=== PATIENT | female | born 1935 | race Caucasian/White ===

== ENCOUNTER 2016-12-06 10:17 | Inpatient (IN) | payer MEDICARE, BC ==
[~2016-12-06] VITALS: Ht 167.6 cm; Wt 70.6 kg
[2016-12-06] MEDS ORDERED: PRAM0.12 PO ×2 (11:37)
[2016-12-06] MEDS ORDERED: LEVO75TA3 PO ×2 (11:37)
[2016-12-06] MEDS ORDERED: VESI10TA PO ×2 (11:37)
[2016-12-06] MEDS ORDERED: CARB25TA9 PO ×2 (11:37)
[2016-12-06] MEDS ORDERED: CITA20TA4 PO ×2 (11:37)
[2016-12-08] MEDS ORDERED: INSULIN HUMAN REGULAR 1,000 UNITS/10 ML VIAL SQ PRN (08:45)
[2016-12-08] MEDS ORDERED: SODIUM CHLORID 0.9% 500 ML IV PRN (08:45)
[2016-12-08] MEDS ORDERED: POVIDONE IODINE 5% (ANTISEPSIS KIT) 4 APPLICATIONS EACH NARE PRN (08:45)
[2016-12-08] MEDS ORDERED: METOPROLOL TARTRATE 25 MG TAB PO PRN (08:45)
[2016-12-08] MEDS ORDERED: LACTATED RINGER'S 1000 ML IV PRN (08:45)
[2016-12-08] MEDS ORDERED: CHLORHEXIDINE GLUCONATE 2 % 1 PACK (2 CLOTHS) TOPICAL PRN (08:45)
[2016-12-08] MEDS ORDERED: TRANEXAMIC ACID IV SCH ×2 (09:00→15:15)
[2016-12-08] MEDS ORDERED: DEXAMETHASONE SOD PHOS 20 MG/5 ML VIAL IV SCH (09:00)
[2016-12-08] MEDS ORDERED: ceFAZolin 2 GM PREMIX 50 ML IV SCH (09:00)
[2016-12-08] MEDS ORDERED: EXPAREL PERI-ARTICULAR INJECTION (TOTAL VOL. 60 ML) P-ARTICULR SCH ×2 (09:00)
[2016-12-08] MEDS ORDERED: POVIDONE IODINE 7.5% SCRUB 118 ML BOTTLE TOPICAL SCH (09:00)
[2016-12-08] MEDS ORDERED: SODIUM CHLORIDE 0.9% IV SCH ×2 (09:00→15:15)
[2016-12-08] MEDS ORDERED: VANCOMYCIN 1000 MG/NS 250 ML (for <70 kg) IV SCH ×2 (09:00)
[2016-12-08] MEDS ORDERED: ACET-703 PO ×2 (09:30)
[2016-12-08 09:31] VITALS: BP 140/66; PULSE 67; RESP 18; TEMP 97.9; O2SAT 100
[2016-12-08] MEDS ORDERED: MIDAZOLAM HCL 2 MG/2 ML VIAL ONE (11:16)
[2016-12-08] MEDS ORDERED: GENTAMICIN SULFATE 80 MG/2 ML VIAL ONE (11:25)
[2016-12-08] MEDS ORDERED: PROPOFOL 200 MG/20 ML AMP IV ONE (11:40)
[2016-12-08] MEDS ORDERED: NEOSTIGMINE 3 MG/3 ML SYR IV ONE (11:40)
[2016-12-08] MEDS ORDERED: ONDANSETRON HCL 4 MG/2 ML VIAL IV PUSH ONE (11:41)
[2016-12-08] MEDS ORDERED: LACTATED RINGER'S 1000 ML INJ 1,000 ML IV ONE (11:41)
[2016-12-08] MEDS ORDERED: PHENYLEPH/NS 1000 MCG/10 ML SYR IV ONE (11:41)
[2016-12-08 14:29] LABS: HEMATOCRIT 35.3 % (35.0-46.0); REVIEW FLAG FINAL
[2016-12-08] MEDS ORDERED: NORC5TAB PO (14:41)
[2016-12-08] MEDS ORDERED: ENOX40P SQ (14:41)
[2016-12-08] MEDS ORDERED: ASPI325T PO (14:41)
[2016-12-08] MEDS ORDERED: BISACODYL 10 MG SUPP RECTAL PRN (14:45)
[2016-12-08] MEDS ORDERED: ZOLPIDEM TARTRATE 5 MG TAB PO PRN (14:45)
[2016-12-08] MEDS ORDERED: NALOXONE HCL 0.4 MG/ML AMP IV PRN (14:45)
[2016-12-08] MEDS ORDERED: MORPHINE SULFATE 4 MG/ML INJ IV PUSH PRN (14:45)
[2016-12-08] MEDS ORDERED: SODIUM CHLORIDE 0.9% FLUSH 5 ML FLUSH IVF PRN (14:45)
[2016-12-08] MEDS ORDERED: diphenhydrAMINE HCL 50 MG/ML VIAL IV PRN (14:45)
[2016-12-08] MEDS ORDERED: Post-op Orders (for Pharmacy) MISC XX ONE (14:45)
[2016-12-08] MEDS ORDERED: ALUMINUM/MAGNESIUM/SIMETH 30 ML CUP PO PRN (14:45)
[2016-12-08] MEDS ORDERED: ACETAMINOPHEN/HYDROcodone 325 MG/5 MG TAB PO PRN (14:45)
[2016-12-08] MEDS ORDERED: ONDANSETRON HCL 4 MG/2 ML VIAL IVP PRN (14:45)
--- NOTE | 2016-12-08 15:09 | HHI.DCPOC ---
Discharge Care Plan Diagnosis: (1) Mechanical complic of internal orthopedic device, implant or graft (2) Status post revision of total hip replacement Your Health Problems Are: Difficulty with ADL Goals to Promote Your Health * To prevent worsening of your condition and complications * To maintain your health at the optimal level Directions to Meet Your Goals Take your medications as prescribed Follow your dietary instruction Follow activity as directed Keep your appointments as scheduled Take your immunizations and boosters as scheduled If your symptoms worsen call your PCP, if no PCP go to Urgent Care Center or Emergency Room Smoking is Dangerous to Your Health. Avoid second hand smoke Call the 24-hour hour crisis hotline for domestic abuse at Maksim Dumas December 08, 2016 15:09
--- NOTE | 2016-12-08 15:10 | HHI.FF ---
Face to Face Verification Diagnosis: (1) Mechanical complic of internal orthopedic device, implant or graft (2) Status post revision of total hip replacement Physical Therapy Gait training, Transfer training, bed to chair Hip: Total hip Left LE Weight Bearing: WB as tolerated Left LE Range of Motion: Active ROM Nursing Nursing: Nimesh teaching, Dressing changes Dressing Changes: Daily dressing change I have seen patient Zohaib Galeano on 12/08/16. My clinical findings support the need for the requested home health care services because: Limited ability to care for self High risk of falls I certify that my clinical findings support that this patient is homebound because: Post-op weakness Unsteady gait/balance Maksim Dumas December 08, 2016 15:10
[2016-12-08] MEDS ORDERED: WALKER WHEELS/F1 MIS (15:11)
[2016-12-08] MEDS ORDERED: COMMODE 3-IN-11 MIS (15:11)
[2016-12-08] MEDS ORDERED: DO NOT ADM ANY ANTICOAGULANT DRUGS PRN (15:15)
[2016-12-08] MEDS ORDERED: fentaNYL CITRATE 250 MCG/5 ML AMP ONE (15:16)
[2016-12-08] MEDS: SODIUM CHLOR 0.9% 1000 ML INJ 1,000 ML IV SCH (15:30)
[2016-12-08 16:00] VITALS: BP 138/62; PULSE 76; RESP 16; TEMP 97.4; O2SAT 100
--- NOTE | 2016-12-08 16:12 | RADRPT ---
EXAM DATE/TIME: 12/08/2016 15:13 [facility] COMPARISON: No previous studies available for comparison. INDICATIONS : Post op left hip. MEDICAL HISTORY : None. SURGICAL HISTORY : None. ENCOUNTER: Initial ACUITY: 1 day PAIN SCORE: Non-responsive. LOCATION: Left hip FINDINGS: The patient is status post a total hip arthroplasty with a bipolar prosthesis. Prosthesis is well-sea nessa. Alignment is anatomic. A fracture is not appreciated. CONCLUSION: Anatomic alignment. Timoteo Hoover MD FACR Board Certified Radiologist. This report was verified electronically.
[2016-12-08] MEDS ORDERED: PILL SPLITTER OTHER PRN (18:00)
[2016-12-08] MEDS ORDERED: PRAMIPEXOLE DIHYDROCHLORIDE 0.25 MG TAB PO SCH (18:00)
[2016-12-08] MEDS: ACETAMINOPHEN/HYDROcodone 325 MG/5 MG TAB PO PRN (19:27)
[2016-12-08] MEDS: SODIUM CHLORIDE 0.9% FLUSH 5 ML FLUSH IVF SCH (19:44)
[2016-12-08 20:00] VITALS: BP 112/53; PULSE 106; RESP 18; TEMP 97.9; O2SAT 100
[2016-12-08] MEDS: TOLTERODINE TARTRATE 4 MG CAP LA PO SCH (20:52)
[2016-12-08] MEDS: CARBIDOPA/LEVODOPA 25 MG/100 MG TAB PO SCH (20:52)
[2016-12-08] MEDS: CITALOPRAM HYDROBROMIDE 20 MG TAB PO SCH (20:52)
[2016-12-09] VITALS (8 sets, daily range): BP systolic 91–118; BP diastolic 41–51; PULSE 80–89; RESP 17–19; TEMP 97–99.8; O2SAT 94–100
[2016-12-09] MEDS: SODIUM CHLOR 0.9% 1000 ML INJ 1,000 ML IV SCH ×4 (01:00→21:00)
[2016-12-09 05:05] LABS: HEMATOCRIT 26.7 % (35.0-46.0); MEAN CELL VOLUME 87.2 FL (80.0-100.0); MEAN CORPUSCULAR HGB CONC 35.6 % (32.0-36.0); PLATELET COUNT 122 TH/MM3 (150-450); RED BLOOD COUNT 3.07 MIL/MM3 (4.00-5.30); RED CELL DISTRIBUTION WIDTH 13.3 % (11.6-17.2); REVIEW FLAG FINAL; WHITE BLOOD COUNT 6.5 TH/MM3 (4.0-11.0)
[2016-12-09 05:26] LABS: BICARBONATE 27.2 MEQ/L (21.0-32.0); POTASSIUM 3.6 MEQ/L (3.5-5.1)
[2016-12-09] MEDS: LEVOTHYROXINE SODIUM 75 MCG TAB PO SCH (06:17)
[2016-12-09] MEDS: PRAMIPEXOLE DIHYDROCHLORIDE 0.25 MG TAB PO SCH ×4 (07:24→22:21)
[2016-12-09] MEDS: CARBIDOPA/LEVODOPA 25 MG/100 MG TAB PO SCH ×3 (07:24→22:17)
[2016-12-09] MEDS: PANTOPRAZOLE SOD 20 MG DELAYED RELEASE TAB PO SCH (07:24)
[2016-12-09] MEDS: ACETAMINOPHEN/HYDROcodone 325 MG/5 MG TAB PO PRN ×3 (07:25→18:30)
[2016-12-09] MEDS: SODIUM CHLORIDE 0.9% FLUSH 5 ML FLUSH IVF SCH ×2 (07:29→21:00)
--- NOTE | 2016-12-09 08:19 | MB ---
cc: DAYDAY SHEPARD DATE OF CONSULTATION: 12/08/2016 DATE OF : 1935 REASON FOR CONSULTATION Assist in medical management. HISTORY OF PRESENT ILLNESS The patient is a very pleasant 81-year-old female with significant past medical history of arthritis, who had a left hip problem before. Today she had total hip arthroplasty with left hip revision. The patient had significant past medical history of hypothyroidism, Parkinson's. The patient fell down a few days ago. But she did not break any bones, as per the patient. She hit her head. But no problem at present. The patient was seen postop in her room. She was still sleepy. She was waking up with a voice, answers appropriately but slow in response. She was alert and seems like oriented x3. She has no headache, no dizziness, no chest pain, no diaphoresis or palpitations. She denies any abdominal pain or chest pain. She has no nausea or vomiting but genitourinary symptoms. PAST MEDICAL HISTORY 1. Hypothyroidism. 2. Parkinson's. MEDICATIONS Reviewed, please see EMR. ALLERGIES The patient has NO KNOWN DRUG ALLERGIES. REVIEW OF SYSTEMS As described above, otherwise negative for 10-systems. SOCIAL HISTORY The patient does not smoke, drink or do any drugs. FAMILY HISTORY Noncontributory. PHYSICAL EXAMINATION GENERAL: The patient is sleepy, arousable and then goes back to sleep. VITAL SIGNS: The patient is afebrile, pulse was 77, respiratory rate 16, blood pressure 145/67, pulse ox of 99% on 2 liters. HEENT: Head is atraumatic with bluish hue on the eyes and left forehead. Nontender. No swelling noted. Eyes negative conjunctival icterus. Mouth unremarkable. NECK: Supple. No increased JVD. Central trachea. RESPIRATORY SYSTEMS: Chest clear to auscultation. CVS:. S1 and S2 audible. I am unable to hear any S3, gallop. GI: Abdomen soft, nontender, no organomegaly. Positive bowel sounds. MUSCULOSKELETAL: Extremities no cyanosis or pedal edema appreciated. The patient was moving her toes. SKIN: Warm and dry. RESEARCH LEADER: Normal facial features, moving all her extremities. INVESTIGATION Hemoglobin 11._ hematocrit 35.5. Hip x-ray was done which showed anatomic alignment. ASSESSMENT 1. Revision of left total hip arthroplasty. 2. Hypothyroidism. 3. Parkinson's. RECOMMENDATIONS 1. BMP, CBC in the morning. 2. Continue home medication as indicated and started. 3. CBC, BMP in the morning. 4. Postop antibiotic, pain management, physical therapy, anticoagulation for DVT prophylaxis as per Ortho. 5. We will start PPI for GI prophylaxis. Discussed and explained with the patient. Thank you Dr. Vizcaino for the consult, will follow with you. Dayday Shepard MD JP/ARINAA /10:49 PM /7:58 AM
--- NOTE | 2016-12-09 10:39 | HHI.PR ---
Subjective Subjective Remarks ambulating with walker and PT assist doing well pain is stable, a "5" no n/v no cp no sob no fever Review of Systems Constitutional Constitutional Remarks 12 point ros completed, neg. except as noted above Vitals/Results Intake & Output 12/08/16 12/08/16 12/09/16 15:00 23:00 07:00 Intake Total 1580 ml 240 ml Output Total 2450 ml 850 ml Balance -870 ml -610 ml Intake Oral 480 ml 240 ml Other 1100 ml Output Urine Total 1850 ml 850 ml Estimated Blood Loss 600 ml # Bowel Movements 0 0 Vital Signs Vital Signs Date Time Temp Pulse Resp B/P Pulse Ox O2 Delivery O2 Flow Rate FiO2 12/09/16 10:19 96 Nasal Cannula 3.00 12/09/16 08:25 18 12/09/16 08:00 99.1 84 19 106/51 94 12/09/16 06:22 96 12/09/16 04:00 99.8 82 18 91/41 98 12/09/16 00:00 98.6 86 18 97/41 100 12/08/16 20:00 97.9 106 18 112/53 100 12/08/16 16:00 97.7 69 12 145/67 99 Nasal Cannula 2 12/08/16 16:00 97.4 76 16 138/62 100 12/08/16 15:45 68 12 147/67 99 Nasal Cannula 2 12/08/16 15:30 77 12 170/70 100 Nasal Cannula 2 12/08/16 15:15 82 12 143/65 98 Nasal Cannula 2 12/08/16 15:06 97.7 91 12 147/79 100 Nasal Cannula 2 12/08/16 11:20 99 CBC/BMP: 12/09/16 0426 12/09/16 0426 Lab Results Laboratory Tests Test 12/08/16 12/09/16 14:10 04:26 Hemoglobin 11.8 GM/DL 9.5 GM/DL Hematocrit 35.3 % 26.7 % Blood Type A POSITIVE Crossmatch Leukocyte-Reduced Red Blood Cells Blood Bank Comment White Blood Count 6.5 TH/MM3 Red Blood Count 3.07 MIL/MM3 Mean Corpuscular Volume 87.2 FL Mean Corpuscular Hemoglobin 31.0 PG Mean Corpuscular Hemoglobin 35.6 % Concent Red Cell Distribution Width 13.3 % Platelet Count 122 TH/MM3 Mean Platelet Volume 9.0 FL Sodium Level 145 MEQ/L Potassium Level 3.6 MEQ/L Chloride Level 111 MEQ/L Carbon Dioxide Level 27.2 MEQ/L Anion Gap 7 MEQ/L Blood Urea Nitrogen 16 MG/DL Creatinine 0.63 MG/DL Estimat Glomerular Filtration 91 ML/MIN Rate Random Glucose 102 MG/DL Calcium Level 8.0 MG/DL Physical Exam General General Appearance: Well Developed, Well Nourished, No Acute Distress, Comfortable Eyes Eye Exam: Pupils Equal, Pupils Reactive Eye Remarks left periorbital bruising Ears & Nose Ears & Nose Exam: Nasal Mucosa [place] Throat Throat Exam: Oral Mucosa [place] & Moist Neck Neck Exam: Neck Supple, Trachea Midline Pulmonary Resp Exam: Clear Bilaterally, No Distress Cardiology CV Exam: Regular, Good Perfusion Gastrointestinal/Abdomen GI Exam: Soft, Non-Tender, Bowel Sounds Present, Non-Distended Musculoskeletal MS Exam: Joints Intact MS Remarks Left hip dressing D/I Integumentary Skin Exam: Warm, Dry Extremeties Extremities Exam: No Edema, Pedal Pulses Palpable Neurologic Neuro Exam: Alert, Awake, Oriented, Speech Clear, [place] Hand Equal Psychiatric Psych Exam: Appropriate Responses VTE Prophylaxis VTE Prophylaxis Device: TEDs VTE Prophylaxis Meds: Lovenox Assessment/Plan Problem List: (1) Status post revision of total hip replacement (2) Parkinson disease (3) Hx of fall (4) Depression (5) Hypothyroid Assessment/Plan continue with post op ortho care pain management PT eval and tx Wound care Lovenox for DVT prophylaxis continue with home medications Labs reviewed, stable HH stable Poss. dc tomorrow bowel regimen D/W RN D/W Dr. Shepard D/W pt This pt. was seen by myself and Dr. Shepard, this note is written on his behalf. Problem Qualifiers (1) Depression: Qualified Code: F32.9 - Depression, unspecified depression type (2) Hypothyroid: Qualified Code: E03.9 - Hypothyroidism, unspecified type Nataliya Reeves December 09, 2016 10:39
--- NOTE | 2016-12-09 12:49 | PD.ORT.PN ---
Subjective Post Op Day #: 1 Subjective Remarks The patient is OOB in chair with minimal pain. Patient has been ambulatory. Patient is voiding. Objective Vitals Vital Signs Date Time Temp Pulse Resp B/P Pulse Ox O2 Delivery O2 Flow Rate FiO2 12/09/16 10:19 96 Nasal Cannula 3.00 12/09/16 08:25 18 12/09/16 08:00 99.1 84 19 106/51 94 12/09/16 06:22 96 12/09/16 04:00 99.8 82 18 91/41 98 12/09/16 00:00 98.6 86 18 97/41 100 12/08/16 20:00 97.9 106 18 112/53 100 12/08/16 16:00 97.7 69 12 145/67 99 Nasal Cannula 2 12/08/16 16:00 97.4 76 16 138/62 100 12/08/16 15:45 68 12 147/67 99 Nasal Cannula 2 12/08/16 15:30 77 12 170/70 100 Nasal Cannula 2 12/08/16 15:15 82 12 143/65 98 Nasal Cannula 2 12/08/16 15:06 97.7 91 12 147/79 100 Nasal Cannula 2 I/O 12/08/16 12/08/16 12/08/16 12/09/16 12/09/16 12/09/16 07:00 15:00 23:00 07:00 15:00 23:00 Intake Total 1580 ml 240 ml Output Total 2450 ml 850 ml Balance -870 ml -610 ml Intake Oral 480 ml 240 ml Other 1100 ml Output Urine Total 1850 ml 850 ml Estimated Blood Loss 600 ml # Bowel Movements 0 0 Result Diagram: 12/09/16 0426 12/09/16 0426 Imaging Last 24 hours Impressions Hip and Pelvis X-Ray 12/08/16 1436 Signed Impressions: Service Date/Time: Thursday, December 08, 2016 15:13 - CONCLUSION: Anatomic alignment. Timoteo Hoover MD Procedures Left hip revision CARITO Objective Remarks The patient's dressing is C/D/I. EHL/TA/G intact. 2+ pedal pulse. No calf swelling or tenderness. + SILT. Minimal swelling. Assessment & Plan Ortho Post Op Day #: 1 Problem List: Assessment and Plan POD #1: Left hip revision CARITO 1. WBAT LLE 2. Lovenox for DVT prophylaxis 3. Posterior hip precautions 4. Ice to the left hip PRN 5. Plan is for discharge to SNF on Tuesday. Maksim Dumas December 09, 2016 12:48
[2016-12-09] MEDS: ENOXAPARIN SODIUM 40 MG/0.4 ML SYRINGE SQ SCH (15:06)
[2016-12-09] MEDS: TOLTERODINE TARTRATE 4 MG CAP LA PO SCH (22:17)
[2016-12-09] MEDS: CITALOPRAM HYDROBROMIDE 20 MG TAB PO SCH (22:17)
[2016-12-09] MEDS: DOCUSATE SODIUM 100 MG CAP PO SCH (22:17)
[2016-12-09] MEDS: MULTIVITAMINS/MINERALS THERAPEUTIC TAB PO SCH (22:17)
--- NOTE | 2016-12-09 22:46 | MP ---
cc: ALIYA CABALLERO DATE OF SURGERY 12/09/16 PREOPERATIVE DIAGNOSIS Left hip replacement, loose femoral stem. POSTOPERATIVE DIAGNOSIS Left hip replacement, loose femoral stem. SURGEON Amparo Caballero MD STAFFING ASSOCIATE SG Blair. STAFFING ASSOCIATE SG Thomas The surgical procedure was assisted by my Advanced Registered Nurse Practitioner. My MERCHANDISE DISPLAYER presence was necessary throughout this case for the manipulation and positioning of the surgical extremity. My MERCHANDISE DISPLAYER was assisting me throughout the duration of this procedure. The skill set of an Advance Registered Nurse Practitioner was medically necessary to complete this procedure. During the surgical case, the surgical dental assistant was working at the back table and the Advance Registered Nurse Practitioner was directly assisting me. PROCEDURE Left hip revision total hip arthroplasty. IMPLANTS [place] acetabular shell, size 50, Gription. +4 10 degree liner 32 mm x 50 mm. Corail cementless revision femoral stem size 12 Femoral head metal, 32, +1, all components from [employer] ESTIMATED BLOOD LOSS 500 ANESTHESIA General anesthesia PROCEDURE IN DETAIL The patient was brought back to the operative theater. General anesthesia was administered. She had received intravenous Ancef and vancomycin. She was placed into a lateral decubitus position with an axillary roll and a well-padded down leg. The left lower extremity was prepped and draped in usual sterile fashion. We made standard incision through the previous incision, dissected through the deep fascia. We found that the previous piriformis and capsule had been repaired and were anatomically positioned. We resected both of these and tagged them with #2 FiberWire for later repair. When we opened the hip, there was very minimal clear fluid. There was no signs of infection at all which was consistent with preoperative testing. We dislocated the previous femoral head and removed the large head component. It was fairly unremarkable. We manually palpated the stem and found it to be grossly loose. We resected capsule inner aspect of the greater trochanter. We removed the stem fairly easily with a simple extraction tool. We found that there was quite a bit of chronic film that had grown over the metaphyseal portion of the spongy bone from the stem being chronically loose and chronically pistoning. This film prevented any osseous integration into the stem. The stem that had been removed had been identified as a Jorge 12 based on the operative note. I did not appreciate a lot of porous coating on the actual stem itself. There was a collar type of stem. We used some curettes and found that there was a small pedestal that had grown in the distal end of the stem. We gently broke through this pedestal and then used some multiple curettes that were angulated from the [place] revision stem tray and removed all of this film. We then proceeded with exposure of the acetabulum which showed mild to moderate degenerative wear. There was some thickened tissue in the pulvinar region which was resected. We then sequentially reamed up to a size 50, trialed a 50 and then placed the final acetabular shell into position in the appropriate anteversion and inclination. It had excellent purchase. This was a no hole cup and we placed a manhole cover and then an inner liner for a 32 head which was a +4 10 degree elevated. We placed this posterior superior. We turned out attention back to the stem. We hand reamed for the revision Corail stem. This was a revision Corail stem, has a longer stem than this typical prosthesis and we felt that we could bypass the area where there was starting to be some wearing on the inner edge of the diaphyseal bone by using this longer stem and the porous coating was much more extensive on the Corail stem than on the Jorge stem. After hand reaming, we then performed broaching. We calcar planed. We trialed the hip. We went with a size 12 stem which fit very nicely and seemed to have a very nice scratch fit. We trialed several head lengths. We decided to go with the +1.5 which was very stable with the hip in position asleep with the hip flexed at 90 degrees and internal rotated to 45 degrees and no undue tension with the leg fully extended and the knee bent to 90 degrees. Final head was placed. Hip was reduced. The wound was thoroughly irrigated. We closed the deep capsule along with the FiberWire back to anatomic position. We closed deep fascia with #1 Vicryl followed by 2-0 Vicryl for skin and noemí. Postoperative plan is weight bear as tolerated, SCDs, RAUL hose, early mobilization, DVT prophylaxis with Lovenox followed by aspirin. We will follow total precautions as well. MD JUNI Taylor/ /2:32 PM /10:14 PM
[2016-12-10 00:01] VITALS: BP 114/52; PULSE 90; RESP 16; TEMP 99.4; O2SAT 94
[2016-12-10] MEDS: PRAMIPEXOLE DIHYDROCHLORIDE 0.25 MG TAB PO SCH ×3 (05:46→22:12)
[2016-12-10] MEDS: LEVOTHYROXINE SODIUM 75 MCG TAB PO SCH (05:46)
[2016-12-10] MEDS: CARBIDOPA/LEVODOPA 25 MG/100 MG TAB PO SCH ×3 (05:46→22:12)
[2016-12-10] MEDS: SODIUM CHLOR 0.9% 1000 ML INJ 1,000 ML IV SCH ×3 (05:50→23:27)
[2016-12-10 06:29] LABS: HEMATOCRIT 25.1 % (35.0-46.0); MEAN CELL VOLUME 88.2 FL (80.0-100.0); MEAN CORPUSCULAR HEMOGLOBIN 29.8 PG (27.0-34.0); MEAN CORPUSCULAR HGB CONC 33.8 % (32.0-36.0); PLATELET COUNT 90 TH/MM3 (150-450); RED BLOOD COUNT 2.85 MIL/MM3 (4.00-5.30); RED CELL DISTRIBUTION WIDTH 13.5 % (11.6-17.2); WHITE BLOOD COUNT 5.4 TH/MM3 (4.0-11.0)
[2016-12-10 06:32] LABS: REVIEW FLAG FINAL
[2016-12-10 08:00] VITALS: BP 98/47; PULSE 89; RESP 19; TEMP 98.2; O2SAT 94
[2016-12-10] MEDS: PANTOPRAZOLE SOD 20 MG DELAYED RELEASE TAB PO SCH (08:26)
[2016-12-10] MEDS: DOCUSATE SODIUM 100 MG CAP PO SCH ×2 (08:26→19:35)
[2016-12-10] MEDS: MAGNESIUM HYDROXIDE SUSP 30 ML CUP PO PRN ×2 (08:26→19:35)
[2016-12-10] MEDS: MULTIVITAMINS/MINERALS THERAPEUTIC TAB PO SCH ×2 (08:26→19:35)
[2016-12-10] MEDS: SODIUM CHLORIDE 0.9% FLUSH 5 ML FLUSH IVF SCH ×2 (09:00→19:35)
--- NOTE | 2016-12-10 09:34 | HHI.PR ---
Subjective Subjective Remarks pain well managed no bm yet bp 100's no cp no sob eating well Review of Systems Constitutional Constitutional Remarks 12 point ros completed, neg. except as noted above Vitals/Results Intake & Output 12/09/16 12/09/16 12/10/16 15:00 23:00 07:00 Intake Total 650 ml 600 ml 240 ml Balance 650 ml 600 ml 240 ml Intake Oral 650 ml 600 ml 240 ml # Voids 2 2 1 Vital Signs Vital Signs Date Time Temp Pulse Resp B/P Pulse Ox O2 Delivery O2 Flow Rate FiO2 12/10/16 08:00 98.2 89 19 98/47 94 12/10/16 00:01 99.4 90 16 114/52 94 12/09/16 21:44 21 12/09/16 21:15 Room Air 12/09/16 20:00 99.1 89 17 102/47 96 12/09/16 19:32 18 12/09/16 16:00 98.2 84 18 118/51 100 12/09/16 12:00 97.0 80 18 109/51 100 12/09/16 10:19 96 Nasal Cannula 3.00 CBC/BMP: 12/10/16 0539 12/09/16 0426 Lab Results Laboratory Tests Test 12/10/16 05:39 White Blood Count 5.4 TH/MM3 Red Blood Count 2.85 MIL/MM3 Hemoglobin 8.5 GM/DL Hematocrit 25.1 % Mean Corpuscular Volume 88.2 FL Mean Corpuscular Hemoglobin 29.8 PG Mean Corpuscular Hemoglobin 33.8 % Concent Red Cell Distribution Width 13.5 % Platelet Count 90 TH/MM3 Mean Platelet Volume 9.2 FL Physical Exam General General Appearance: Well Developed, Well Nourished, No Acute Distress, Comfortable Eyes Eye Exam: Pupils Equal, Pupils Reactive Eye Remarks left periorbital bruising Ears & Nose Ears & Nose Exam: Nasal Mucosa [place] Throat Throat Exam: Oral Mucosa [place] & Moist Neck Neck Exam: Neck Supple, Trachea Midline Pulmonary Resp Exam: Clear Bilaterally, No Distress Cardiology CV Exam: Regular, Good Perfusion Gastrointestinal/Abdomen GI Exam: Soft, Non-Tender, Bowel Sounds Present, Non-Distended Musculoskeletal MS Exam: Joints Intact MS Remarks Left hip dressing D/I Integumentary Skin Exam: Warm, Dry Extremeties Extremities Exam: No Edema, Pedal Pulses Palpable Neurologic Neuro Exam: Alert, Awake, Oriented, Speech Clear, Beam Dyer Operator Equal Psychiatric Psych Exam: Appropriate Responses VTE Prophylaxis VTE Prophylaxis Device: TEDs VTE Prophylaxis Meds: Lovenox Assessment/Plan Problem List: (1) Status post revision of total hip replacement (2) Parkinson disease (3) Hx of fall (4) Depression (5) Hypothyroid Assessment/Plan continue with post op ortho care pain management PT eval and tx Wound care Lovenox for DVT prophylaxis continue with home medications post op anemia HH 8.5/25.1 PRBC if Hgb < 8 repeat in am Bowel regimen CM for dc planning, needs 3 night stay for poss dc tomorrow D/W RN D/W Dr. Shepard D/W pt This pt. was seen by myself and Dr. Shepard, this note is written on his behalf. Problem Qualifiers (1) Depression: Qualified Code: F32.9 - Depression, unspecified depression type (2) Hypothyroid: Qualified Code: E03.9 - Hypothyroidism, unspecified type Nataliya Reeves December 10, 2016 09:34
[2016-12-10 12:00] VITALS: BP 120/54; PULSE 91; RESP 18; TEMP 96.5; O2SAT 96
[2016-12-10] MEDS: ACETAMINOPHEN/HYDROcodone 325 MG/5 MG TAB PO PRN ×2 (13:33→19:53)
[2016-12-10] MEDS: ENOXAPARIN SODIUM 40 MG/0.4 ML SYRINGE SQ SCH (14:08)
[2016-12-10 16:00] VITALS: BP_SYST 53; PULSE 87; RESP 19; TEMP 97.8; O2SAT 98
--- NOTE | 2016-12-10 16:31 | PD.ORT.PN ---
Subjective Post Op Day #: 2 Subjective Remarks The patient is resting in bed in NAD. Patient reports minimal pain to the left hip. Objective Vitals Vital Signs Date Time Temp Pulse Resp B/P Pulse Ox O2 Delivery O2 Flow Rate FiO2 12/10/16 12:00 96.5 91 18 120/54 96 12/10/16 08:00 98.2 89 19 98/47 94 12/10/16 00:01 99.4 90 16 114/52 94 12/09/16 21:44 21 12/09/16 21:15 Room Air 12/09/16 20:00 99.1 89 17 102/47 96 12/09/16 19:32 18 I/O 12/09/16 12/09/16 12/09/16 12/10/16 12/10/16 12/10/16 07:00 15:00 23:00 07:00 15:00 23:00 Intake Total 240 ml 650 ml 600 ml 240 ml Output Total 850 ml Balance -610 ml 650 ml 600 ml 240 ml Intake Oral 240 ml 650 ml 600 ml 240 ml Output Urine Total 850 ml # Voids 2 2 1 # Bowel Movements 0 Result Diagram: 12/10/16 0539 12/09/16 0426 Imaging Last 24 hours Impressions Hip and Pelvis X-Ray 12/08/16 1436 Signed Impressions: Service Date/Time: Thursday, December 08, 2016 15:13 - CONCLUSION: Anatomic alignment. Timoteo Hoover MD Procedures Left hip revision CARITO Objective Remarks The patient's dressing is changed with no drainage. Incision is well approximated with surgical clips intact. No redness or s/s of infection. EHL/ TA/G intact. 2+ pedal pulse. No calf swelling or tenderness. + SILT. Minimal swelling. Assessment & Plan Ortho Post Op Day #: 2 Problem List: Assessment and Plan POD #2: Left hip revision CARITO 1. WBAT LLE 2. Lovenox for DVT prophylaxis 3. Posterior hip precautions 4. Ice to the left hip PRN 5. Plan is for discharge to SNF on Tuesday. Maksim Dumas December 10, 2016 16:31
[2016-12-10] MEDS: TOLTERODINE TARTRATE 4 MG CAP LA PO SCH (19:35)
[2016-12-10] MEDS: CITALOPRAM HYDROBROMIDE 20 MG TAB PO SCH (19:36)
[2016-12-10 20:00] VITALS: BP 94/46; PULSE 78; RESP 17; TEMP 98.3; O2SAT 94
[2016-12-11] VITALS: BP 99/49; PULSE 85; RESP 18; TEMP 98; O2SAT 94
[2016-12-11 04:00] VITALS: BP 93/46; PULSE 78; RESP 17; TEMP 97; O2SAT 94
[2016-12-11] MEDS: PRAMIPEXOLE DIHYDROCHLORIDE 0.25 MG TAB PO SCH ×2 (06:08→14:11)
[2016-12-11] MEDS: CARBIDOPA/LEVODOPA 25 MG/100 MG TAB PO SCH ×2 (06:08→14:11)
[2016-12-11] MEDS: LEVOTHYROXINE SODIUM 75 MCG TAB PO SCH (06:08)
[2016-12-11] MEDS: ACETAMINOPHEN/HYDROcodone 325 MG/5 MG TAB PO PRN ×3 (06:27→14:12)
[2016-12-11 07:07] LABS: HEMATOCRIT 24.6 % (35.0-46.0); MEAN CELL VOLUME 89.2 FL (80.0-100.0); MEAN CORPUSCULAR HEMOGLOBIN 29.9 PG (27.0-34.0); MEAN CORPUSCULAR HGB CONC 33.5 % (32.0-36.0); PLATELET COUNT 88 TH/MM3 (150-450); RED BLOOD COUNT 2.76 MIL/MM3 (4.00-5.30); RED CELL DISTRIBUTION WIDTH 13.6 % (11.6-17.2)
[2016-12-11 07:14] LABS: REVIEW FLAG FINAL
[2016-12-11] MEDS: SODIUM CHLOR 0.9% 1000 ML INJ 1,000 ML IV SCH (07:33)
[2016-12-11] MEDS: MULTIVITAMINS/MINERALS THERAPEUTIC TAB PO SCH (07:35)
[2016-12-11] MEDS: DOCUSATE SODIUM 100 MG CAP PO SCH (07:36)
[2016-12-11] MEDS: PANTOPRAZOLE SOD 20 MG DELAYED RELEASE TAB PO SCH (07:36)
[2016-12-11] MEDS: MAGNESIUM HYDROXIDE SUSP 30 ML CUP PO PRN (07:36)
[2016-12-11] MEDS: SODIUM CHLORIDE 0.9% FLUSH 5 ML FLUSH IVF SCH (07:41)
[2016-12-11 08:00] VITALS: BP 93/45; PULSE 73; RESP 18; TEMP 97.9; O2SAT 97
--- NOTE | 2016-12-11 09:57 | PD.ORT.PN ---
Subjective Subjective Remarks feeling much better, sitting at bedside Objective Vitals Vital Signs Date Time Temp Pulse Resp B/P Pulse Ox O2 Delivery O2 Flow Rate FiO2 12/11/16 08:00 97.9 73 18 93/45 97 12/11/16 07:42 Room Air 12/11/16 04:00 97.0 78 17 93/46 94 12/11/16 00:00 98.0 85 18 99/49 94 12/10/16 22:02 Room Air 12/10/16 20:53 18 12/10/16 20:00 98.3 78 17 94/46 94 12/10/16 16:00 97.8 87 19 53/ 98 12/10/16 12:00 96.5 91 18 120/54 96 I/O 12/10/16 12/10/16 12/10/16 12/11/16 12/11/16 12/11/16 06:59 14:59 22:59 06:59 14:59 22:59 Intake Total 240 ml 600 ml 240 ml 240 ml Balance 240 ml 600 ml 240 ml 240 ml Intake Oral 240 ml 600 ml 240 ml 240 ml # Voids 1 3 1 1 # Bowel Movements 0 0 Result Diagram: 12/11/16 0600 12/09/16 0426 Imaging Last 24 hours Impressions Hip and Pelvis X-Ray 12/08/16 1436 Signed Impressions: Service Date/Time: Thursday, December 08, 2016 15:13 - CONCLUSION: Anatomic alignment. Timoteo Hoover MD Procedures Left hip revision CARITO Objective Remarks The patient's dressing is clean and dry. Mild swelling. No calf swelling or tenderness. comp stockings applied + SILT. Assessment & Plan Assessment and Plan POD #3: Left hip revision CARITO 1. WBAT LLE 2. Lovenox for DVT prophylaxis 3. Posterior hip precautions 4. Ice to the left hip PRN 5. Plan is for discharge to SNF today. Rich Vizcaino MD December 11, 2016 09:57
[2016-12-11] MEDS ORDERED: BISACODYL 10 MG SUPP RECTAL ONE (11:30)
--- NOTE | 2016-12-11 11:47 | HHI.PR ---
Subjective Subjective Remarks pain well managed no bm yet bp 100's no cp no sob eating well going to rehab today Review of Systems Constitutional Constitutional Remarks 12 point ros completed, neg. except as noted above Vitals/Results Intake & Output 12/10/16 12/10/16 12/11/16 15:00 23:00 07:00 Intake Total 600 ml 240 ml 240 ml Balance 600 ml 240 ml 240 ml Intake Oral 600 ml 240 ml 240 ml # Voids 3 1 1 # Bowel Movements 0 0 Vital Signs Vital Signs Date Time Temp Pulse Resp B/P Pulse Ox O2 Delivery O2 Flow Rate FiO2 12/11/16 08:00 97.9 73 18 93/45 97 12/11/16 07:42 Room Air 12/11/16 04:00 97.0 78 17 93/46 94 12/11/16 00:00 98.0 85 18 99/49 94 12/10/16 22:02 Room Air 12/10/16 20:53 18 12/10/16 20:00 98.3 78 17 94/46 94 12/10/16 16:00 97.8 87 19 53/ 98 12/10/16 12:00 96.5 91 18 120/54 96 CBC/BMP: 12/11/16 0600 12/09/16 0426 Lab Results Laboratory Tests Test 12/11/16 06:00 White Blood Count 4.0 TH/MM3 Red Blood Count 2.76 MIL/MM3 Hemoglobin 8.2 GM/DL Hematocrit 24.6 % Mean Corpuscular Volume 89.2 FL Mean Corpuscular Hemoglobin 29.9 PG Mean Corpuscular Hemoglobin 33.5 % Concent Red Cell Distribution Width 13.6 % Platelet Count 88 TH/MM3 Mean Platelet Volume 9.4 FL Physical Exam General General Appearance: Well Developed, Well Nourished, No Acute Distress, Comfortable Eyes Eye Exam: Pupils Equal, Pupils Reactive Eye Remarks left periorbital bruising Ears & Nose Ears & Nose Exam: Nasal Mucosa [place] Throat Throat Exam: Oral Mucosa [place] & Moist Neck Neck Exam: Neck Supple, Trachea Midline Pulmonary Resp Exam: Clear Bilaterally, No Distress Cardiology CV Exam: Regular, Good Perfusion Gastrointestinal/Abdomen GI Exam: Soft, Non-Tender, Bowel Sounds Present, Non-Distended Musculoskeletal MS Exam: Joints Intact MS Remarks Left hip dressing D/I Integumentary Skin Exam: Warm, Dry Extremeties Extremities Exam: No Edema, Pedal Pulses Palpable Neurologic Neuro Exam: Alert, Awake, Oriented, Speech Clear, Circus Agent Equal Psychiatric Psych Exam: Appropriate Responses VTE Prophylaxis VTE Prophylaxis Device: TEDs VTE Prophylaxis Meds: Lovenox Assessment/Plan Problem List: (1) Status post revision of total hip replacement (2) Parkinson disease (3) Hx of fall (4) Depression (5) Hypothyroid Assessment/Plan continue with post op ortho care pain management PT eval and tx Wound care Lovenox for DVT prophylaxis continue with home medications post op anemia HH 8.2/24.6 PRBC if Hgb < 8 Bowel regimen CM for dc planning, going to SNF today follow CBC at SNF D/W RN D/W Dr. Shepard D/W pt This pt. was seen by myself and Dr. Shepard, this note is written on his behalf. Problem Qualifiers (1) Depression: Qualified Code: F32.9 - Depression, unspecified depression type (2) Hypothyroid: Qualified Code: E03.9 - Hypothyroidism, unspecified type Nataliya Reeves December 11, 2016 11:47
[2016-12-11 12:30] VITALS: BP 108/47; PULSE 72; RESP 16; TEMP 98; O2SAT 98
[2016-12-11] MEDS ORDERED: BISACODYL EC 5 MG TABEC PO ONE (14:00)
[2016-12-11] MEDS: ENOXAPARIN SODIUM 40 MG/0.4 ML SYRINGE SQ SCH (14:00)
--- NOTE | 2016-12-13 21:36 | HHI.DS ---
Discharge Summary Admission Date December 08, 2016 at 08:11 Discharge Date: December 11, 2016 Admitting Diagnosis Left hip revision total hip arthroplasty Diagnosis: (1) Mechanical complic of internal orthopedic device, implant or graft Diagnosis: Principal (2) Status post revision of total hip replacement Diagnosis: Principal Procedures Left hip revision CARITO Brief History This is a 81 year old female patient with loosening of her previous left hip hemiarthroplasty CBC/BMP: 12/11/16 0600 12/09/16 0426 Significant Findings Laboratory Tests Test 12/11/16 06:00 Red Blood Count 2.76 MIL/MM3 (4.00-5.30) Hemoglobin 8.2 GM/DL (11.6-15.3) Hematocrit 24.6 % (35.0-46.0) Platelet Count 88 TH/MM3 (150-450) PE at Discharge The patient's dressing is clean and dry. Mild swelling. No calf swelling or tenderness. comp stockings applied + SILT. Hospital Course The patient was admitted to the hospital with loosening of her previous left hip hemiarthroplasty to have a revision CARITO. The patient's surgery went well without complications. The patient is WBAT. The patient was placed on a regular diet post op. The patient was placed on Lovenox for DVT prophylaxis. The patient was discharged to SNF and will f/u with Dr. Vizcaino in 1-2 weeks. Pt Condition on Discharge: Stable Discharge Disposition: Discharge to SNF Discharge Instructions Diet Instructions: As Tolerated, No Restrictions Activities You Can Perform: Weight Bearing as Julia Activities to Avoid: Strenuous Activity Follow up Referrals: Orthopedics with Rich Vizcaino MD New Medications: Aspirin (Aspirin) 325 Mg Tab 325 MG PO DAILY Start Aspirin after Lovenox is completed. Prevent Blood Clot # 30 Ref 0 TAB Commode 3-in-1 (Commode 3-in-1) 1 Mis Mis 1 EA .ROUTE DIRECTED #1 Ref 0 EA Enoxaparin Inj (Lovenox Inj) 40 Mg/0.4 Ml Syr 40 MG SQ DAILY Start Aspirin after Lovenox is completed. Blood Clot Prevention # 10 Ref 0 SYRINGE Hydrocodone-Acetaminophen ([place]) 5-325 mg Tab 1-2 TAB PO Q4H PRN PAIN #60 Ref 0 TAB Walker with Front Wheels (Walker with Front Wheels) 1 Mis Mis 1 EA .ROUTE DIRECTED #1 Ref 0 EA Continued Medications: Carbidopa-Levodopa (Carbidopa-Levodopa) 25-100 Mg Tab 1 TAB PO Q8HR Parkinson Disease Mgmt #90 Ref 0 TAB Citalopram (Citalopram) 20 Mg Tab 20 MG PO HS Control Depression #30 Ref 0 TAB Levothyroxine (Levothyroxine) 75 Mcg Tab 75 MCG PO DAILY Thyroid #30 Ref 0 TAB Pramipexole (Pramipexole) 0.125 Mg Tab 0.125 MG PO TID Parkinson Disease Mgmt #90 Ref 0 TAB Solifenacin (Vesicare) 10 Mg Tab 10 MG PO HS Urinary Symptom Managemen #30 Ref 0 TAB Discontinued Medications: Acetaminophen (Tylenol Extra Strength) 500 Mg Tab 1000 MG PO Q6H PRN pain Ref 0 TAB Maksim Dumas December 13, 2016 21:36
== END 2016-12-11 15:37 | DRG 468 ==
LOC: HSDI 12-08 08:11 → N06A 12-08 16:14
PROVIDERS: ADMIT Orthopaedic Surgery; ATTEND Orthopaedic Surgery
PROC: 0SRS01A Replacement of Left Hip Joint, Femoral Surface with Metal Synthetic Substitute, Uncemented, Open Approach (ICD-10-PCS; principal; 2016-12-09)
PROC: 0SPS0JZ Removal of Synthetic Substitute from Left Hip Joint, Femoral Surface, Open Approach (ICD-10-PCS; 2016-12-09)
DX: T84.031A Mechanical loosening of internal left hip prosthetic joint, initial encounter (principal); G20 Parkinson's disease; D64.89 Other specified anemias; E03.9 Hypothyroidism, unspecified; Y79.2 Prosthetic and other implants, materials and accessory orthopedic devices associated with adverse incidents; Y92.9 Unspecified place or not applicable; Y83.8 Other surgical procedures as the cause of abnormal reaction of the patient, or of later complication, without mention of misadventure at the time of the procedure; F32.9 Major depressive disorder, single episode, unspecified; R94.31 Abnormal electrocardiogram [ECG] [EKG]
CPT/HCPCS: 36415; 71020; 73502; 80048; 80053; 81001; 85014; 85018; 85025; 85027; 85610; 85652; 85730; 86850; 86900; 86901; 86920; 93005; 94150; C1776; C9290; J0690; J1100; J1580; J1650; J2250; J2370; J2405; J2710; J3010; J3370; J7030; J7050; J7120; L1830

== ENCOUNTER → 2016-12-06 | Outpatient (CLI) | payer MEDICARE, BC ==
[~2016-12-06] MED LIST: ACET-703 PO; ASPI325T PO; CARB25TA9 PO; CITA20TA4 PO; COMMODE 3-IN-11 MIS; ENOX40P SQ; LEVO75TA3 PO; NORC5TAB PO; PRAM0.12 PO; VESI10TA PO; WALKER WHEELS/F1 MIS
[2016-12-06 11:50] LABS: BLOOD, URINE NEG (NEG); COMMENT (UR) CULT NOT INDICATED; CULTURE IF INDICATED CULT NOT INDICATED; GLUCOSE,URINE NEG (NEG); KETONE, URINE NEG (NEG); MUCUS URINE FEW /lpf (OCC); NITRITE,URINE NEG (NEG); PH, URINE 5.5 (5.0-8.5); SQUAMOUS EPITHELIAL CELL URINE <1 /hpf (0-5); URINE COLOR YELLOW (YELLW/STRAW)
[2016-12-06 11:51] LABS: APTT (PATIENT) 25.6 SEC (24.3-30.1); PROTHROMBIN TIME - PATIENT 10.8 SEC (9.8-11.6)
[2016-12-06 12:05] LABS: AUTOMATED NEUTROPHIL # 2.5 TH/MM3 (1.8-7.7); BASOPHIL % 0.8 % (0.0-2.0); EOSINOPHIL # 0.1 TH/MM3 (0-0.4); HEMATOCRIT 36.5 % (35.0-46.0); HEMO FLAGS DIFF FINAL; LYMPH % 25.2 % (9.0-44.0); MEAN CORPUSCULAR HEMOGLOBIN 30.3 PG (27.0-34.0); MONO % 8.7 % (0.0-8.0); NEUT % 62.3 % (16.0-70.0); PLATELET COUNT 144 TH/MM3 (150-450); RED CELL DISTRIBUTION WIDTH 13.7 % (11.6-17.2)
[2016-12-06 12:21] LABS: ALT (GPT) 24 U/L (10-53); ANION GAP 5 MEQ/L (5-15); AST (GOT) 19 U/L (15-37); BICARBONATE 31.2 MEQ/L (21.0-32.0); BLOOD UREA NITROGEN 22 MG/DL (7-18); CHLORIDE 107 MEQ/L (98-107); GLOMERULAR FILTRATION RATE 91 ML/MIN (>89); GLUCOSE,FASTING 85 MG/DL (74-99); SODIUM (NA) 143 MEQ/L (136-145)
[2016-12-06 12:23] LABS: ALKALINE PHOSPHATASE 63 U/L (45-117); TOTAL BILIRUBIN ADULT 0.6 MG/DL (0.2-1.0)
[2016-12-06 12:25] LABS: WESTERGREN SEDIMENTATION RATE 15 mm/hr (0-30)
--- NOTE | 2016-12-06 12:30 | RADRPT ---
EXAM DATE/TIME: 12/06/2016 12:14 [facility] COMPARISON: No previous studies available for comparison. INDICATIONS : Evaluate for pneumonia, pneumothorax and communicable diseases. Pre-op total hip MEDICAL HISTORY : None. SURGICAL HISTORY : None. ENCOUNTER: Initial ACUITY: 1 day PAIN SCORE: 0/10 LOCATION: chest FINDINGS: PA and lateral views of the chest demonstrate the lungs to be symmetrically aerated without evidence of mass, infiltrate or effusion. The cardiomediastinal contours are unremarkable. Osseous structure s are intact. CONCLUSION: No acute disease. Rajan King MD on December 06, 2016 at 12:28 Board Certified Radiologist. This report was verified electronically.
--- NOTE | 2016-12-08 06:25 | EKG ---
Date Performed: 12/06/2016 Time Performed: 11:27:32 PTAGE: 81 years EKG: Sinus rhythm POSSIBLE RIGHT VENTRICULAR CONDUCTION DELAY BORDERLINE ECG NO PREVIOUS TRACING DOCTOR: Tc Lowe Interpretating Date/Time 12/08/2016 06:23:59
== END ==
LOC: CPRE 10:55
PROVIDERS: ATTEND Orthopaedic Surgery
DX: Z01.810 Encounter for preprocedural cardiovascular examination (principal); Z01.812 Encounter for preprocedural laboratory examination; M25.50 Pain in unspecified joint; T84.031A Mechanical loosening of internal left hip prosthetic joint, initial encounter; R94.31 Abnormal electrocardiogram [ECG] [EKG]; Z96.642 Presence of left artificial hip joint
CPT/HCPCS: 36415; 71020; 80053; 81001; 85025; 85610; 85652; 85730; 93005

== ENCOUNTER 2017-12-02 00:24 | Emergency (ER) | payer MEDICARE, BC ==
[~2017-12-02] VITALS: Ht 167.6 cm; Wt 70.0 kg
[~2017-12-02 00:24] MED LIST changes: -ACET-703 PO; +ASPI-183 PO; -ASPI325T PO; -VESI10TA PO; +VESI10TA2 PO
[2017-12-02 00:31] VITALS: BP 176/74; PULSE 73; RESP 18; TEMP 98.4; O2SAT 97
[2017-12-02] MEDS ORDERED: TETANUS/DIPHTHERIA TOXOID ADULT 0.5 ML VIAL IM ONE (00:45)
[2017-12-02 01:07] LABS: AUTOMATED NEUTROPHIL # 2.9 TH/MM3 (1.8-7.7); BASOPHIL % 0.6 % (0.0-2.0); EOSINOPHIL # 0.2 TH/MM3 (0-0.4); EOSINOPHIL % 4.1 % (0.0-4.0); HEMATOCRIT 35.2 % (35.0-46.0); HEMOGLOBIN 12.4 GM/DL (11.6-15.3); LYMPH % 23.6 % (9.0-44.0); LYMPHOCYTE # 1.1 TH/MM3 (1.0-4.8); MEAN CELL VOLUME 87.3 FL (80.0-100.0); MEAN CORPUSCULAR HEMOGLOBIN 30.8 PG (27.0-34.0); MEAN CORPUSCULAR HGB CONC 35.3 % (32.0-36.0); MEAN PLATELET VOLUME 8.8 FL (7.0-11.0); MONO % 10.7 % (0.0-8.0); MONOCYTE # 0.5 TH/MM3 (0-0.9); PLATELET COUNT 154 TH/MM3 (150-450); RED BLOOD COUNT 4.04 MIL/MM3 (4.00-5.30); RED CELL DISTRIBUTION WIDTH 13.4 % (11.6-17.2); WHITE BLOOD COUNT 4.7 TH/MM3 (4.0-11.0)
[2017-12-02 01:27] LABS: ALBUMIN 3.7 GM/DL (3.4-5.0); ALT (GPT) 16 U/L (10-53); AST (GOT) 16 U/L (15-37); BICARBONATE 28.5 MEQ/L (21.0-32.0); BLOOD UREA NITROGEN 26 MG/DL (7-18); CHLORIDE 107 MEQ/L (98-107); CREATININE 0.74 MG/DL (0.50-1.00); GLOMERULAR FILTRATION RATE 76 ML/MIN (>89); GLUCOSE,RANDOM 95 MG/DL (74-106); SODIUM (NA) 143 MEQ/L (136-145)
[2017-12-02 01:29] LABS: ALKALINE PHOSPHATASE 62 U/L (45-117); TOTAL BILIRUBIN ADULT 0.5 MG/DL (0.2-1.0); TOTAL PROTEIN 6.9 GM/DL (6.4-8.2)
[2017-12-02] MEDS ORDERED: LIDOCAINE HCL 2% 20 ML VIAL INFIL ONE (01:30)
[2017-12-02 02:06] VITALS: BP 141/64; PULSE 72; RESP 16; O2SAT 97
--- NOTE | 2017-12-02 04:08 | PD ---
HPI Chief Complaint: Fall Time Seen by Provider: 00:39 Travel History International Travel<30 days: No Contact w/Intl Traveler<30days: No Traveled to known affect area: No History of Present Illness HPI pt fell onto the handle of her walker and sliced her forearm degloving her right volar aspect and exposing the belly of her flexor muscle , 12x 7cm laceration. exposed fat and no actual muscle laceration. pt reports localized pain that started with injury and happened just prior to arrival . no active bleeding . pt does not seem to be in acute distress inspite of obvious severe arm laceration PFSH Past Medical History Arthritis: Yes Anxiety: Yes Depression: Yes Cancer: Yes (COLON, REMOVED) Cardiovascular Problems: Yes (MURMUR) High Cholesterol: Yes Endocrine: Yes Gastrointestinal Disorders: Yes (COLON CA) Genitourinary: Yes (FREQUENCY) Hepatitis: No Hiatal Hernia: No Immune Disorder: No Medical other: Yes (FREQUENT FALLS) Musculoskeletal: Yes (OA) Neurologic: Yes (PARKINSON, TUMOR RIGHT FRONTAL LOBE BENIGN, SYNCOPE) Psychiatric: Yes (DEPRESSION) Reproductive: No Respiratory: No Thyroid Disease: Yes Past Surgical History Abdominal Surgery: Yes (COLECTOMY FOR CA, APPENDECOTMY) AICD: No Body Medical Devices: DENTAL IMPLANTS Cardiac Surgery: No Ear Surgery: No Endocrine Surgery: No Eye Surgery: Yes (BILATERAL CATARACTS) Genitourinary Surgery: No Gynecologic Surgery: Yes (HYSTERECTOMY) Joint Replacement: No 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) Oral Surgery: Yes (TONSILLECTOMY) Pacemaker: No Thoracic Surgery: No Other Surgery: Yes Social History Alcohol Use: No Tobacco Use: No Substance Use: No Allergies-Medications (Allergen,Severity, Reaction): Coded Allergies: furosemide (Verified Allergy, Severe, PAIN, 12/02/17) PT REPORTS BURNING PAIN Reported Meds & Prescriptions Reported Meds & Active Scripts Active Tramadol (Tramadol HCl) 50 Mg Tab 50 Mg PO Q6H PRN Augmentin (Amoxicillin-Clavulanate) 875-125 Mg Tab 1 Tab PO BID Walker with Front Wheels (Device) 1 Mis Mis 1 Ea .ROUTE DIRECTED Commode 3-in-1 (Device) 1 Mis Mis 1 Ea .ROUTE DIRECTED Reported Levothyroxine (Levothyroxine Sodium) 75 Mcg Tab 75 Mcg PO DAILY Vesicare (Solifenacin) 10 Mg Tab 10 Mg PO HS Citalopram (Citalopram Hydrobromide) 20 Mg Tab 20 Mg PO HS Carbidopa-Levodopa 25-100 Mg Tab 1 Tab PO Q8HR Review of Systems Except as stated in HPI: all other systems reviewed are Neg Musculoskeletal: Positive: Myalgias, Pain (right arm pain degloved forearm) Physical Exam Narrative GENERAL: awake alert no apparent distress from her large arm deglove deep lac to right forearm SKIN: Warm and dry. 12 cm x 7 cm skin deglove opening up expose and lacerated SUB Q fat to right forearm flexor muscle area no tendon no muscle involvement . hand flexion in tact HEAD: Atraumatic. Normocephalic. EYES: Pupils equal and round. No scleral icterus. No injection or drainage. ENT: No nasal bleeding or discharge. Mucous membranes pink and moist. NECK: Trachea midline. No JVD. CARDIOVASCULAR: Regular rate and rhythm. RESPIRATORY: No accessory muscle use. Clear to auscultation. Breath sounds equal bilaterally. GASTROINTESTINAL: Abdomen soft, non-tender, nondistended. Hepatic and splenic margins not palpable. MUSCULOSKELETAL: Extremities aright arm large lac deglove exposed fat 12x7 cm R forearm obvious deformities. NEUROLOGICAL: Awake and alert. No obvious cranial nerve deficits. Motor grossly within normal limits. Five out of 5 muscle strength in the arms and legs. Normal speech. PSYCHIATRIC: Appropriate mood and affect; insight and judgment normal. Data Data Last Documented VS Vital Signs Date Time Temp Pulse Resp B/P (MAP) Pulse Ox O2 Delivery O2 Flow Rate FiO2 12/02/17 10:14 12/02/17 09:49 78 18 98 Room Air 12/02/17 00:31 98.4 Orders Orders Tetanus/Diphtheria Tox Adult (Tetanus/Di (12/02/17 00:45) Cefazolin Inj (Ancef Inj) (12/02/17 00:45) Complete Blood Count With Diff (12/02/17 00:41) Comprehensive Metabolic Panel (12/02/17 00:41) Lidocaine 2% Inj (Xylocaine 2% Inj) (12/02/17 01:30) Ed Discharge Order (12/02/17 07:08) Labs Laboratory Tests Test 12/02/17 00:53 White Blood Count 4.7 TH/MM3 Red Blood Count 4.04 MIL/MM3 Hemoglobin 12.4 GM/DL Hematocrit 35.2 % Mean Corpuscular Volume 87.3 FL Mean Corpuscular Hemoglobin 30.8 PG Mean Corpuscular Hemoglobin Concent 35.3 % Red Cell Distribution Width 13.4 % Platelet Count 154 TH/MM3 Mean Platelet Volume 8.8 FL Neutrophils (%) (Auto) 61.0 % Lymphocytes (%) (Auto) 23.6 % Monocytes (%) (Auto) 10.7 % Eosinophils (%) (Auto) 4.1 % Basophils (%) (Auto) 0.6 % Neutrophils # (Auto) 2.9 TH/MM3 Lymphocytes # (Auto) 1.1 TH/MM3 Monocytes # (Auto) 0.5 TH/MM3 Eosinophils # (Auto) 0.2 TH/MM3 Basophils # (Auto) 0.0 TH/MM3 CBC Comment DIFF FINAL Differential Comment Blood Urea Nitrogen 26 MG/DL Creatinine 0.74 MG/DL Random Glucose 95 MG/DL Total Protein 6.9 GM/DL Albumin 3.7 GM/DL Calcium Level 9.0 MG/DL Alkaline Phosphatase 62 U/L Aspartate Amino Transf (AST/SGOT) 16 U/L Alanine Aminotransferase (ALT/SGPT) 16 U/L Total Bilirubin 0.5 MG/DL Sodium Level 143 MEQ/L Potassium Level 4.0 MEQ/L Chloride Level 107 MEQ/L Carbon Dioxide Level 28.5 MEQ/L Anion Gap 8 MEQ/L Estimat Glomerular Filtration Rate 76 ML/MIN [facility] Medical Decision Making Medical Screen Exam Complete: Yes Emergency Medical Condition: Yes Differential Diagnosis arm laceration from metal injury from walker vs fall into walker vs syncope Narrative Course pt has lac that needs repair I irrigated and did dbl layer closure and gave ancef and tetanus and then d/c in AM with keflex Rx and bacitracin applied and cling wrap Procedures Procedure Narrative laceration repair of right forearm complicated 2 layer repair of the 12cm x 7 cm with skin crushed, used lidocaine 2% 5 CC INFILTRTE I irrigated with copious normal saline and then 4.0 vicryl 4 sutures to close SUBQ fat in arm then 4.0 nylon interrupted sutures used to approximate wound edges and then 16 sutures total on external wound used then bacitracin and cling wrap and . Diagnosis Primary Impression: Forearm laceration Qualified Codes: S51.811A - Laceration without foreign body of right forearm, initial encounter Additional Impression: Laceration of forearm, complicated Patient Instructions: General Instructions, Laceration (ED) Additional Instructions: Suture removal in 10 days . take antibioitics for the next 7 days Scripts Tramadol (Tramadol) 50 Mg Tab 50 MG PO Q6H Y for PAIN, #10 TAB 0 Refills Prov: Dilip Zamora MD 12/02/17 Amoxicillin-Clavulanate (Augmentin) 875-125 Mg Tab 1 TAB PO BID for Infection, #10 TAB 0 Refills Prov: Dilip Zamora MD 12/02/17 Dilip Zamora MD December 02, 2017 04:08
[2017-12-02 04:43] VITALS: BP 134/62; PULSE 68; RESP 16; O2SAT 95
[2017-12-02] MEDS ORDERED: TRAM50TA PO (07:07)
[2017-12-02] MEDS ORDERED: AUGM875T3 PO (07:07)
[2017-12-02 09:49] VITALS: BP 138/58; PULSE 78; RESP 18; O2SAT 98
== END 2017-12-02 10:18 | disposition home or self-care (01) ==
LOC: NEPE 00:24
DX: S51.811A Laceration without foreign body of right forearm, initial encounter (principal); M19.90 Unspecified osteoarthritis, unspecified site; F41.9 Anxiety disorder, unspecified; E78.00 Pure hypercholesterolemia, unspecified; R01.1 Cardiac murmur, unspecified; G20 Parkinson's disease; E07.9 Disorder of thyroid, unspecified; W45.8XXA Other foreign body or object entering through skin, initial encounter; Z23 Encounter for immunization
CPT/HCPCS: 12034; 80053; 85025; 90471; 90714; 96365; 99284; J0690